=== PATIENT | male | born 1955 | race Caucasian/White ===

== ENCOUNTER 2016-12-21 12:34 | Outpatient (CLI) | payer BC ==
--- NOTE | 2016-12-21 15:00 | RAD ---
FOUR VIEWS CERVICAL SPINE: Date: 12-21-16 History: Cervicalgia. Patient has history of fall and complains of numbness in first digit of the ri ght hand. Comparison: 10-31-16 FINDINGS: C1 to cervicothoracic junction seen on the lateral and swimmer's views of the cervical spine. There is no evidence of a subluxation. No fracture is seen from C1 to C6. C7 vertebral body is mostly obsc ured due to overlying osseous structures which limits adequate evaluation of the C7 vertebral body. Multilevel degenerative changes are seen including facet hypertrophic changes. As noted on the prior study there is narrowing of the C5-6 and C6-7 intervertebral disc spaces with prominent osteophytes present at these levels. Calcification of the anterior longitudinal ligament is seen at multiple le vels. Prevertebral soft tissues are within normal limits. The odontoid is obscured on the odontoid view but has a grossly normal appearance on the lateral pro jection. IMPRESSION: 1. Overall stable radiographic appearance of the cervical spine with multilevel degenerative changes . 2. Patient has history of bilateral pedicle fractures of C7 vertebral body, but as noted above the C 7 vertebral body is obscured on this exam due to overlying osseous structures. No definite additiona l fracture is seen, and there is no subluxation identified. POS: [facility]
== END 2016-12-21 12:35 | disposition home or self-care (01) ==
LOC: TBSIIMAG 12:34
PROVIDERS: ATTEND Surgery
DX: M54.2 Cervicalgia (principal); M47.812 Spondylosis without myelopathy or radiculopathy, cervical region; Z87.311 Personal history of (healed) other pathological fracture
CPT/HCPCS: 72040